=== PATIENT | male | born 1945 | race American Indian/Alaskan Native ===

== ENCOUNTER → 2018-01-31 | Outpatient (CLI) | payer MEDICARE, OTHER ==
[~2018-01-31] MED LIST: ALFU10TA28 PO; ALFU10TA9 PO; AZIT-17 PO; CELEBREX; CHOL10005 PO; CHOL200074 PO; CIPR-214 PO; CIPR-344 PO; CYA1000 PO; CYCL10TA29 PO; DAR100 PO; DICL100G39 TOP; DORZ10DR3 OP; ESC10 PO; FENT-16 TD; FEXO-72 PO; FLUT16SP19 NS; GABA-547 PO; LEVO25TA57 PO; LEVO50TA86 PO; LIDO700A19 ASDIRECTED; LIDO700A29 TD; LYRICA; META400T PO; META800T18 PO; METR-1 PO; OXYC-373 PO; OXYC10TA67 PO; OXYC1CAP42 PO; PER PO; PNEU0.5D3 IM; TADA2.5T3 PO; TRAM-420 PO
[2018-01-31 17:18] LABS: PLATELET COUNT, AUTOMATED 168 K/uL (150-450)
== END ==
LOC: LAB 16:45
PROVIDERS: ATTEND Family Medicine
DX: R53.1 Weakness (principal); R53.83 Other fatigue; E55.9 Vitamin D deficiency, unspecified; K52.9 Noninfective gastroenteritis and colitis, unspecified; R30.0 Dysuria
CPT/HCPCS: 36415; 81001; 82040; 82247; 82306; 82310; 82374; 82435; 82565; 82947; 84075; 84132; 84155; 84295; 84439; 84443; 84450; 84460; 84520; 85025